=== PATIENT | female | born 1965 | race Caucasian/White ===

== ENCOUNTER 2018-03-15 20:35 | Inpatient (IN) | payer OTHER ==
[~2018-03-15] VITALS: Ht 162.6 cm; Wt 65.3 kg
--- NOTE | ~2018-03-15 | CON ---
[address] [address] CONSULTATION Name: SUZAN BYRD Room: [address] IN .R.#: [id number] Admission: 03/15/18 Attend Phys: Rory Langley MD Discharge: Date of : 67 Report #: [id number] THIS REPORT FOR: //name// CC: Rory Gomez DATE OF SERVICE: 03/16/2018 INPATIENT CONSULTATION CHIEF COMPLAINT: Chest pain. HISTORY OF PRESENT ILLNESS: The patient is a 52-year-old previously healthy woman who presented with chest pain, which is left sided, sharp, lasting only a minute or less and radiates to her left scapula. It occurs at rest. Its onset was within the last week. She had a more severe episode yesterday. She presented to the Emergency Room and her ECG was normal and she was admitted for further evaluation and subsequent troponin levels have all been normal. This morning, she is symptom-free. She has separate complaints of mild dizziness. Her blood pressures have been low normal here in the hospital. She has no documented history of high blood pressure or heart disease. She has a history of normal cholesterol levels in the past. She is not having any febrile illnesses recently. PAST MEDICAL HISTORY: She has no medical history. SOCIAL HISTORY: She is a nonsmoker. She drinks. PAST SURGICAL HISTORY: Positive spinal tumor. FAMILY HISTORY: Negative. REVIEW OF SYSTEMS: GENERAL: No fevers or chills. PULMONARY: No wheezing or cough. No history of asthma or emphysema. ENDOCRINE: No history of diabetes. Her lipid status is normal based on lab 6 months ago at her doctor's office, Dr. Gomez. HEMATOLOGIC: No anemia or bleeding disorders. RENAL: No history of kidney failure. CARDIOVASCULAR: Positive chest pain. No orthopnea, no PND, no dyspnea with exertion, no palpitations. NEUROLOGIC: Mild dizziness if she stands up too quickly. GASTROINTESTINAL: She denies symptoms associated with meals. She is not having any heartburn-type symptoms or reflux of gastric contents. She denies hematemesis, melena [id number] [id number] CONSULTATION Name: CESAR BYRDCHRIST FARMERAN Room: [address]#: [id number] Admission: 03/15/18 Attend Phys: Rory Langley MD Discharge: Date of : 67 Report #: [id number] PHYSICAL EXAMINATION: VITAL SIGNS: Blood pressure is 122/65, pulse 62, respiratory rate 18 and O2 sats 100% on room air. GENERAL: This is a pleasant middle-aged woman. She is alert, oriented, in no apparent distress. NECK: Supple. No jugular venous distention. CARDIOVASCULAR EXAMINATION: Regular. I cannot hear a murmur or S3. LUNGS: Clear to auscultation. NEUROLOGIC: There are no focal deficits. LABORATORY DATA: Electrocardiogram is normal. There are normal ST segments. There is no ST elevation. There is one PVC, somewhat poor R-wave progression. Hemoglobin is 13.9, white blood cell count is 8.0 and platelet count is 342,000. INR is 1.0. Sodium is 142, potassium 5.3, chloride 105, BUN is 17 and creatinine is 1.1. Troponin I is 0.06 x 3 sets. ProBNP is 94. Chest x-ray shows normal single view of the chest. IMPRESSION: 1. Chest pain. Her symptoms seem pleuritic. She has ruled out for an acute myocardial infarction. She has relatively low risk factor profile. I think she can be treated with NSAIDs. I started her on Naprosyn 500 mg p.o. b.i.d. for 7-10 days, then discontinue it. However, I will arrange for further evaluation with a treadmill stress echocardiogram, which can be performed as an outpatient. 2. Dizziness. Her vital signs and telemetry are normal. This could be some degree of vertigo. I will have her follow up with Dr. Gomez for this. By: [id number] Sanabria MD, FACC /nt
[2018-03-15 20:44] VITALS: BP 149/78
[2018-03-15 20:56] LABS: ABSOLUTE BASOPHILS 0.1 thou/uL (0.0-0.2); ABSOLUTE EOSINOPHILS 0.2 thou/uL (0.0-0.7); ABSOLUTE LYMPHOCYTES 3.1 thou/uL (0.8-5.3); ABSOLUTE MONOCYTES 0.8 thou/uL (0.0-1.2); ABSOLUTE NEUTROPHILS 3.9 thou/uL (1.6-8.1); BASOPHILS 0.9 %; EOSINOPHILS 2.8 %; HEMATOCRIT 41.3 % (37.0-47.0); HEMOGLOBIN 13.9 gm/dL (12.0-15.0); LYMPHOCYTES 38.2 %; MCH 31.9 pg (26.0-34.0); MCHC 33.6 g/dL (28.0-37.0); MCV 94.8 fL (80.0-100.0); MONOCYTES 9.6 %; MPV 7.7 fl. (7.2-11.1); NUCLEATED RBCS 0 /100WBC; PLATELET COUNT* 342 thou/uL (150-400); POLYS 48.5 %; RBC 4.35 mil/uL (4.20-5.00); RDW-CV 12.4 % (10.5-14.5)
[2018-03-15 21:12] LABS: ANION GAP 8 mmol/L (7-16); BUN 17 mg/dL (7-18); CALCIUM 9.2 mg/dL (8.5-10.1); CHLORIDE 105 mmol/L (98-107); CO2 29 mmol/L (21-32); CREATININE 1.1 mg/dL (0.6-1.3); GLUCOSE 104 mg/dL (70-99); POTASSIUM 5.3 mmol/L (3.5-5.1); SODIUM 142 mmol/L (136-145)
[2018-03-15 21:16] LABS: PROTIME 10.2 Seconds (9.20-11.50)
[2018-03-15 21:17] LABS: ALBUMIN 3.9 g/dL (3.4-5.0); ALKALINE PHOSPHATASE 89 U/L (46-116); LIPASE 164 U/L (73-393); NT-PRO BRAIN NAT PEPTIDE 94 pg/mL (<300); SGOT 17 U/L (15-37); SGPT 17 U/L (30-65); TOTAL BILIRUBIN 0.2 mg/dL (<0.1-1.0); TOTAL PROTEIN 7.7 g/dL (6.4-8.2); TROPONIN-I LEVEL <0.06 ng/mL (<0.06)
[2018-03-15 21:34] LABS: URINE BILIRUBIN NEGATIVE (Negative); URINE BLOOD 3+ (Negative); URINE CLARITY CLEAR; URINE COLOR YELLOW; URINE GLUCOSE-RANDOM NEGATIVE (Negative); URINE KETONES NEGATIVE (Negative); URINE LEUKOCYTES-REFLEX TRACE (Negative); URINE NITRITE-REFLEX NEGATIVE (Negative); URINE PROTEIN NEGATIVE (Negative); URINE SPECIFIC GRAVITY <= 1.005 (1.005-1.030); URINE UROBILINOGEN 0.2 E.U./dl (0.2-1.0)
[2018-03-15 21:42] LABS: BACTERIA-REFLEX None Seen /HPF (None Seen); CASTS None Seen /LPF (None Seen); CRYSTALS None Seen /LPF (None Seen); SQUAMOUS >10 Many /LPF (0-3); URINE RBC 0-2 Rare /HPF (0-2); URINE WBC-REFLEX None Seen /HPF (0-5)
[2018-03-15 22:35] VITALS: BP 138/77
[2018-03-15 22:41] VITALS: BP 142/70
[2018-03-16 04:27] VITALS: BP 127/72
--- NOTE | 2018-03-16 04:33 | NUR ---
RECIEVED REPORT AND ASSUMED CARE AT 2233. PT CAME IN WITH CHEST PAIN ON LEFT SIDE. NO C/O PAIN AT THIS TIME. PT UP ADLIB. VITAL SIGNS STABLE. ASSESSMENT COMPLETED AND DISCUSSED PLAN OF CARE AND PT UNDERSTANDS. PT HAS CARDIAC CONSULT AND HAS BEEN NPO SINCE MIDNIGHT. BED LOCKED AND CALL LIGHT WTIHIN REACH. HOURLY ROUNDING COMPLETED AND ALL NEEDS MET. NURSING TO CONTINUE TO MONITOR.
[2018-03-16 08:17] VITALS: BP 123/65
--- NOTE | 2018-03-16 08:30 | NUR ---
RECEIVED REPORT. ASSUMED CARE OF PT AT 0730. VSS. CARDIAC MONTIORING IN PLACE SR. AM ASSESSMENT AND VITALS COMPELTED CHARTED. PT ALERT AND ORIENTED.PT ON RA. IVF INFUSING PER ORDERS. PT NPO PENDING CARDIOLOGY CONSULT. PT INFORMED OF PLAN OF CARE. PT COMMUNICATES UNDERSTANIDNG. PT DENIES ANY PAIN THIS AM. PT DOES REPORT PAIN IN THE MIDDLE OF THE NIGHT. PT UP AD CRUZ. CALL LIGHT IS WITHIN REACH. [facility].
[2018-03-16 12:00] VITALS: BP 123/65
[2018-03-16 12:10] VITALS: BP 129/69
--- NOTE | 2018-03-16 12:33 | EKG ---
[place] [address] ELECTROCARDIOGRAM REPORT Name: SUZAN BYRD Room: [address] ADM IN M.R.#: [id number] Admission: 03/15/18 Attend Phys: Rory Langley MD Discharge: Date of : 67 Report #: [id number] THIS REPORT FOR: //name// [facility] ED Test Date: 2018-03-15 Test Time: 20:40:15 Pat Name: SUZAN BYRD Department: Room: [facility] Gender: F [employer]: EVARISTO : 1965 Requested By: Tara Peng Order Number: [id number] MD: Gian Sanabria Measurements Intervals Muse Rate: 84 P: 62 CA: 167 QRS: -8 QRSD: 85 T: 50 QT: 389 QTc: 460 Interpretive Statements Sinus rhythm Consider anterior infarct No previous ECG available for comparison Electronically Signed On 03-16-2018 12:33:50 [employer] by Gian Sanabria [email or web address] <ELECTRONICALLY SIGNED> By: Gian Sanabria MD, [facility] 03/16/18 1233 [id number] Gian Sanabria MD, FAC /EPI
--- NOTE | 2018-03-16 14:49 | NUR ---
Pt is A&O. Resides at home with her and kids. Active and independent, works outside of the home. No DME. No hx of HH or SNF. Goal is home at [place]. No needs anticipated.
[2018-03-16] MEDS ORDERED: NAPROSYN500 MG PO (15:52)
[2018-03-16] MEDS ORDERED: PEPCID20 MG PO (15:53)
--- NOTE | 2018-03-16 16:02 | NUR ---
DISCHARGE ORDERS RECEIVED AND PREPARED. IV AND CARDIAC MONTIORING DISCONTINUED. PT EDUCATED ON DISCHARGE INSTRCTUIONS. ALL QUESTIONS AND CONCERNS TAKING AT THIS TIME. PT GIVEN COPY OF DISCHARGE PAPERWORK AND SCRIPT. ALL PT'S PERSONAL BELONGINGS GATEHRED AND SENT HOME WITH PT. PT ESCORTED OFF UNIT WITH NURSING STAFF. PT LEFT IN PRIVATE VEHICLE.
== END 2018-03-16 16:15 | disposition home or self-care (01) | DRG 206 ==
LOC: M.ERS 20:35 → M.TBA-ER 21:52 → M.2W 21:52
PROVIDERS: Emergency Medicine
DX: M94.0 Chondrocostal junction syndrome [Tietze] (principal); Z79.82 Long term (current) use of aspirin; Z79.899 Other long term (current) drug therapy; K21.9 Gastro-esophageal reflux disease without esophagitis; Z98.890 Other specified postprocedural states; Z85.89 Personal history of malignant neoplasm of other organs and systems

== ENCOUNTER → 2019-06-26 | Outpatient (CLI) | payer OTHER ==
[~2019-06-26] MED LIST: NAPROSYN500 MG PO; PEPCID20 MG PO
== END ==
LOC: M.RAD 09:29
DX: Z12.31 Encounter for screening mammogram for malignant neoplasm of breast (principal)

== ENCOUNTER → 2019-08-26 | Outpatient (CLI) | payer OTHER | LOC: M.ULTRA 08:42 | DX: N85.2 Hypertrophy of uterus (principal); N95.0 Postmenopausal bleeding; D25.9 Leiomyoma of uterus, unspecified ==